=== PATIENT | female | born 1975 | race Caucasian/White ===

== ENCOUNTER 2023-09-21 13:24 | Outpatient (CLI) | payer BC, SELFPAY ==
--- OUTSIDE RECORDS SUMMARY | 2023-09-21 13:27 | XMS_ITS | Referral Summary ---
Author Name Unknown Organization [facility] Address [address] [place] [address] Care Team Providers Care Stock Clerk Self Service Store Name Role Phone Clinic, [facility] [place] [facility] Pro vider Allergies Active Allergy Reactions Criticality Noted Date Comments Amoxicillin Itching 02/17/2020 Social History Tobacco Use Types Packs/Day Years Used Date Smoking Tobacco: Never Assessed Adolescent Education Answer Date Record ed Getting School Help Needed Not on file 01/31 Sex and Gender Information Value Date Recorded Sex Assigned at Not on file Gender Identity Not on file Sexual Orientation Not on file Last Filed Vital Signs Vital Sign Reading Time Taken Comments Blood Pressure 115/84 02/17/2020 8:00 PM CDT Pulse 79 02/17/2020 8:00 PM CDT Temperature 36.1 ??C (97 ??F) 02/17/2020 3:44 PM CDT Respiratory Rate 13 02/17/2020 6:00 PM CDT Oxygen Saturation 98% 02/17/2020 8:50 PM CDT Inhaled Oxygen Concentration - - Weight 78 kg (171 lb 15.3 oz) 02/17/2020 3:44 PM CDT Height - - Body Mass Index - - Plan of Treatment Not on file Care Teams Stock Clerk Self Service Store Relationship Specialty Start Date End Date Clinic, [facility] [address] [place] [address] PCP - General 02/17/20
--- OUTSIDE RECORDS SUMMARY | 2023-09-21 13:27 | XMS_ITS | Clinical Summary ---
Author Name Unknown Organization [facility] Address [address] [place] [address] Care Team Providers Care Appraiser Oil And Water Name Role Phone Mariela Da Silva PA-C Primary Care Provider + [phone] Source Comments You are receiving this document as you are listed as the primary care provider,follow-up provider, or the patient has been referred to you for consultation.This is in compliance with the Medicare and[facility] E[facility] Incentive Program,which states Providers who transition their patient to another setting of careor provider of care or refers their patient to another provider of care shouldprovide summary care record for each transition of care or referral. Formerly [facility] Allergies Active Allergy Reactions Criticality Noted Date Comments Amoxicillin 01/20/2020 Medications No known medications Active Problems No known active problems Immunizations Name Administration Dates Next Due Influenza, Unspecified Formulation 04/22/2011, Tdap 02/15/2014 Family History Medical History Relation Name Comments Diabetes, Type II Father Hyperlipidemia Father Hypertension Father No Known Problems Mother No Known Problems Brother No Known Problems Daughter 1 Guy No Known Problems Daughter 2 Baron Diabetes, Type II Maternal Grandfather in car accident Maternal Grandfather Hypertension Maternal Grandfather Obesity Maternal Grandfather Emphysema Maternal Grandmother from influenza Paternal Grandmother No Known Problems Son Mario Relation Name Status Comments Father Alive Mother Alive Brother Alive Daughter 1 Guy Alive Daughter 2 Edgar Alive Maternal Grandfather Maternal Grandmother Paternal Grandfather Unknown Alive Paternal Grandmother Son Mario Alive Social History Tobacco Use Types Packs/Day Years Used Date Smoking Tobacco: Never Smokeless Tobacco: Never Alcohol Use Standard Drinks/Week Comments Yes 0 (1 standard drink = 0.6 oz pur e alcohol) PHQ-2 Answer Date Recorded PHQ-2 Score 0 01/20/2020 Sex and Gender Information Value Date Recorded Sex Assigned at Not on file Gender Identity Not on file Sexual Orientation Not on file Last Filed Vital Signs Vital Sign Reading Time Taken Comments Blood Pressure 128/70 02/17/2020 2:36 PM CDT Pulse 67 02/17/2020 2:36 PM CDT Temperature 36.4 ??C (97.6 ??F) 02/17/2020 2:36 PM CD T Respiratory Rate 20 02/17/2020 2:36 PM CDT Oxygen Saturation 99% 02/17/2020 2:36 PM CDT Inhaled Oxygen Concentration - - Weight 75.7 kg (166 lb 14.4 oz) 020 10:38 AM CDT Height 162.6 cm (5' 4) 01/20/2020 10:3 8 AM CDT Body Mass Index 28.65 01/20/2020 10:38 AM CDT Plan of Treatment Health Maintenance Due Date Last Done Comments Colon Cancer Screening Plan Due 1974 Hep C Screening (Preventive Services) 1974 HepB (1) 1993 Adult Preventive Visit 01/19/2021 01/20/2020 COVID-19 Vaccine (1 - 2022-2 4 season) 2023 Influenza (Season Ended) 2024 011, 03/08/2010 DTaP/Tdap/Td (2 - Tdap) 02/16/2024 02/15/2014 Zoster/Shingles (1 of 2) 2024 Cervical Cancer Screening 01/19/2025 01/20/2020 Cholesterol 01/19/2025 01/20/2020 HIV Screening (Preventive Services) Completed 01/20/2020 HepA Aged Out No longer eligi ble based on patient's age to complete this topic Hib Aged Out No longer eligi ble based on patient's age to complete this topic IPV (Polio) Aged Out No longer eligi ble based on patient's age to complete this topic MCV4 Aged Out No longer eligi ble based on patient's age to complete this topic Pneumococcal Aged Out No longer eligi ble based on patient's age to complete this topic Procedures Procedure Name Priority Date/Time Associated Diagnosis Comments HIV /2 AG/AB 4TH GEN Routine 01/20/2020 11:37 AM CDT Screening for HIV (human immunodeficiency virus) LIPID PANEL & DIRECT LDL (IF NEEDED) Routine 01/20/2020 11:36 AM CDT Encounter for screening for lipoid disorders PAP TEST Routine 01/20/2020 11:23 AM CDT Pap smear for cervical cancer screening from Last 3 Months or Most Recently Relevant to Health Maintenance Results * HIV 1/2 Ag/Ab 4th Generation (01/20/2020 11:37 AM CDT) HIV 1/2 Antigen/Antib rosemarie (4th generation) Negative (Non Reactive) Negative (Non Reactive) 01/20/2020 3:55 PM CDT [facility] Comment:HIV-1 p24 Antigen an d HIV-1/HIV-2 Antibody not detected Blood Venipuncture / Unknown 01/20/2020 11:37 AM CDT 01/20/2020 11:37 AM CDT Mariela Da Silva PA-C LAB_1 [facility] [address] * Lipid Panel and Direct LDL(If Needed) (01/20/2020 11:36 AM CDT) Cholesterol 184 0 - 199 mg/dL 01/20/2020 3:21 PM CDT [facility] Triglyceride 105 <=149 mg/dL 01/20/2020 3:21 PM CDT [facility] HDL Cholesterol 45 >=40 mg/dL 0 3:21 PM CDT [facility] LDL, Calculated 118 <130 mg/dL 0 3:21 PM CDT [facility] Non HDL Chol, Calculated 139 mg/dL 01/20/2020 3:21 PM CDT [facility] Cholesterol/HDL Ratio 4.1 01/20/2020 3:21 PM CDT [facility] Hours Fasting 14 01/20/2020 3:21 PM CDT [facility] Blood Venipuncture / Unknown 01/20/2020 11:36 AM CDT 01/20/2020 11:37 AM CDT Mariela Da Silva PA-C LAB_1 [facility] [address] [place] [address], [facility] [phone] [facility] [address] [place] [address], [facility] [phone] * PAP Test (01/20/2020 11:23 AM CDT) Case Report Pap ? Case: [id number] ? Authorizing Provider: ??Mariela Da Silva PA-C ?Collected: ? 01/20/2020 1123 ? Ordering Location: ? [place] [address] Family ? Received: ?01/20/2020 1533 ? Medicine ? First Screen: ?Hanh Shane, [place] ? (ASCP) ? Specimen: ?Pap Test, Routine, Cervix/Endocervix ? 01/31/2020 8:57 AM CDT [facility] Pap Specimen Adequacy Satisfactory for evaluation, endocervical/jordan sformation zone component present. 01/31/2020 8:57 AM CDT [facility] Pap Interpretation Negative for intraepithelial lesion or malignancy (NILM). 01/31/2020 8:57 AM CDT [facility] Pap Disclaimer The Pap test is a screening test designed to aid in the detection of cervical cancer and its precursor lesions. It is not a diagnostic procedure and should not be used as the sole means of detecting cervical cancer. Both false-positive and false-negative results may occur. 01/31/2020 8:57 AM CDT [facility] Gross Description The specimen is received in SurePath fixative and properly labeled. 1 Pap-stained SurePath slide is prepared. 01/31/2020 8:57 AM CDT [facility] Embedded Images 0 8:57 AM CDT [facility] Other Specimen Type ENTIRE ENDOCERVIX / Unknown 01/20/2020 11:23 AM CDT 01/20/2020 3:33 PM CDT Comment:LMP: Patient's last menstrual period was 01/17/2020. Mariela Da Silva PA-C LAB PATHOLOGY [facility] [address] [place] [address], [facility] from Last 3 Months or Most Recently Relevant to Health Maintenance Care Teams Appraiser Oil And Water Relationship Specialty Start Date End Date Mariela Da Silva PA-C [address] [place] [address] PCP - General Physician Licensed Practical Vocational Nurse 06/25/21
--- OUTSIDE RECORDS SUMMARY | 2023-09-21 13:27 | XMS_ITS | Clinical Summary ---
Author Name Unknown Organization [facility] Address [address] [place] [address] Care Team Providers Care Lead Radiologic Technologist Name Role Phone Clinic, [facility] [facility] Pro vider Allergies Active Allergy [...] of Treatment Not on file Care Teams Lead Radiologic Technologist Relationship Specialty Start Date End Date Clinic, [facility] [address] [place] [address] PCP - General 02/17/20
[2023-09-21 23:25] LABS: Chlamydia DNA Amplified* NOT DETECTED (No Detected); GC DNA Amplified* NOT DETECTED (No Detected)
== END 2023-09-21 13:25 | disposition home or self-care (01) ==
PROVIDERS: PCP Physician Assistant Medical; Visit Provider Physician Assistant Medical
DX: Z11.3 Encounter for screening for infections with a predominantly sexual mode of transmission (principal)
CPT/HCPCS: 87491; 87591

== ENCOUNTER 2023-09-24 08:03 | Outpatient (CLI) | payer BC, SELFPAY ==
--- OUTSIDE RECORDS SUMMARY | 2023-09-25 12:43 | XMS_ITS | Clinical Summary ---
Author Name Unknown Organization [facility] Address [address] [place] [address] Care Team Providers Care Wrapper Layer And Examiner Soft Work Name Role Phone Clinic, [facility] [place] [facility] Pro vider Allergies Active Allergy [...] of Treatment Not on file Care Teams Wrapper Layer And Examiner Soft Work Relationship Specialty Start Date End Date Clinic, [facility] [address] [place] [address] PCP - General 02/17/20
--- OUTSIDE RECORDS SUMMARY | 2023-09-25 12:43 | XMS_ITS | Clinical Summary ---
Author Name Unknown Organization [facility] Address [address] [place] [address] Care Team Providers Care Urgent Care Technician Name Role Phone Mariela Da Silva PA-C Primary Care Provider + [phone] Source Comments You are receiving this document as you are listed as the primary care provider,follow-up provider, or the patient has been referred to you for consultation.This is in compliance with the Medicare and[facility] EHR Incentive Program,which states Providers who transition their patient to another setting of careor provider of care or refers their patient to another provider of care shouldprovide summary care record for each transition of care or referral. [facility] Allergies Active Allergy Reactions Criticality Noted Date [...] Alive Daughter 1 Guy Alive Daughter 2 Davidson Alive Maternal Grandfather Maternal Grandmother Paternal Grandfather [...] Negative (Non Reactive) 01/20/2020 3:55 PM CDT [facility] Comment:HIV-1 p24 Antigen an d HIV-1/HIV-2 Antibody not detected Blood Venipuncture / Unknown 01/20/2020 11:37 AM CDT 01/20/2020 11:37 AM CDT Mariela Da Silva PA-C LAB_1 [facility] [address] * Lipid Panel and Direct LDL(If Needed) (01/20/2020 11:36 AM CDT) Cholesterol 184 0 - 199 mg/dL 01/20/2020 3:21 PM CDT [facility] Triglyceride 105 <=149 mg/dL 01/20/2020 3:21 PM CDT [facility] HDL Cholesterol 45 >=40 mg/dL 0 3:21 PM CDT [facility] LDL, Calculated 118 <130 mg/dL 0 3:21 PM CDT [facility] Non HDL Chol, Calculated 139 mg/dL 01/20/2020 3:21 PM CDT [facility] Cholesterol/HDL Ratio 4.1 01/20/2020 3:21 PM CDT [facility] Hours Fasting 14 01/20/2020 3:21 PM CDT [facility] Blood Venipuncture / Unknown 01/20/2020 11:36 AM CDT 01/20/2020 11:37 AM CDT Mariela Da Silva PA-C LAB_1 [facility] [address] [place] [address], [facility] [phone] [facility] [address] [place] [address], [facility] [phone] * PAP Test (01/20/2020 11:23 AM CDT) Case Report Pap ? Case: [id number] ? Authorizing Provider: ??Mariela Da Silva PA-C ?Collected: ? 01/20/2020 1123 ? Ordering Location: ? [place] [address] Family ? Received: ?01/20/2020 1533 ? Medicine ? First Screen: ?Hanh Shane, CT ? (ASCP) ? Specimen: ?Pap Test, Routine, Cervix/Endocervix ? 01/31/2020 8:57 AM CDT [facility] Pap Specimen Adequacy Satisfactory for evaluation, endocervical/jordan sformation zone component present. 01/31/2020 8:57 AM CDT [facility] Pap Interpretation Negative for intraepithelial lesion or malignancy (NILM). 01/31/2020 8:57 AM CDT [facility] Pap Disclaimer The Pap test is a screening test designed to aid in the detection of cervical cancer and its precursor lesions. It is not a diagnostic procedure and should not be used as the sole means of detecting cervical cancer. Both false-positive and false-negative results may occur. 01/31/2020 8:57 AM CDT [facility] Gross Description The specimen is received in SurePath fixative and properly labeled. 1 Pap-stained SurePath slide is prepared. 01/31/2020 8:57 AM CDT [facility] Embedded Images 0 8:57 AM CDT [facility] Other Specimen Type ENTIRE ENDOCERVIX / Unknown 01/20/2020 11:23 AM CDT 01/20/2020 3:33 PM CDT Comment:LMP: Patient's last menstrual period was 01/17/2020. Mariela Da Silva PA-C LAB PATHOLOGY [facility] [address] [place] [address], [facility] from Last 3 Months or Most Recently Relevant to Health Maintenance Care Teams Urgent Care Technician Relationship Specialty Start Date End Date Mariela Da Silva PA-C [address] [place] [address] PCP - General Physician Podiatric Aide 06/25/21
--- OUTSIDE RECORDS SUMMARY | 2023-09-25 12:43 | XMS_ITS | Referral Summary ---
Author Name Unknown Organization [facility] Address [address] [place] [address] Care Team Providers Care Fine Arts Instructor Name Role Phone Clinic, [facility] [place] [facility] Pro vider Allergies Active Allergy [...] of Treatment Not on file Care Teams Fine Arts Instructor Relationship Specialty Start Date End Date Clinic, [facility] [address] [place] [address] PCP - General 02/17/20
== END 2023-09-24 08:04 | disposition home or self-care (01) ==
PROVIDERS: PCP Physician Assistant Medical; Referring Provider Physician Assistant Medical; Visit Provider Physician Assistant Medical
DX: N95.1 Menopausal and female climacteric states (principal); Z13.228 Encounter for screening for other metabolic disorders; Z11.3 Encounter for screening for infections with a predominantly sexual mode of transmission
CPT/HCPCS: 80053; 80061; 82670; 84403; 84443; 86703; 86803

== ENCOUNTER 2023-10-30 06:56 | Outpatient (CLI) | payer BC, SELFPAY ==
--- OUTSIDE RECORDS SUMMARY | 2023-10-30 06:59 | XMS_ITS | Clinical Summary ---
Author Organization [facility] Address [address] [place] [address] Care Team Providers Care Operations Recruiter Name Role Phone Clinic, [facility] [place] [facility] Pro vider Allergies Active Allergy [...] of Treatment Not on file Care Teams Operations Recruiter Relationship Specialty Start Date End Date Clinic, [facility] [address] [place] [address] PCP - General 02/17/20
--- OUTSIDE RECORDS SUMMARY | 2023-10-30 06:59 | XMS_ITS | Clinical Summary ---
[facility] Organization [facility] Address [address] [address] Care Team Providers Care Supervisor Production Department Name Role Phone Mariela Da Silva PA-C Primary Care Provider + [phone] Source Comments You are receiving this document as you are listed as the primary care provider,follow-up provider, or the patient has been referred to you for consultation.This is in compliance with the Medicare and[facility] EHR Incentive [facility],which states Providers who transition their patient to another setting of careor provider of care or refers their patient to another provider of care shouldprovide summary care record for each transition of care or referral. [facility] Allergies Active Allergy Reactions Criticality Noted Date [...] 1 Guy No Known Problems Daughter 2 Price Diabetes, Type II Maternal Grandfather in car accident Maternal Grandfather Hypertension Maternal Grandfather Obesity Maternal Grandfather Emphysema Maternal Grandmother from influenza Paternal Grandmother No Known Problems Son Mario Relation Name Status Comments Father Alive Mother Alive Brother Alive Daughter 1 Guy Alive Daughter 2 Baron Alive Maternal Grandfather Maternal Grandmother Paternal Grandfather [...] Name Priority Date/Time Associated Diagnosis Comments HIV 1/2 AG/AB 4TH GEN Routine 01/20/2020 11:37 AM [...] Negative (Non Reactive) 01/20/2020 3:55 PM CDT [facility] Comment:HIV-1 p24 Antigen an d HIV-1/HIV-2 Antibody not detected Blood Venipuncture / Unknown 01/20/2020 11:37 AM CDT 01/20/2020 11:37 AM CDT Mariela Da Silva PA-C LAB_1 [facility] [address] * Lipid Panel and Direct LDL(If Needed) (01/20/2020 11:36 AM CDT) Pathologist [facility] Cholesterol 184 0 - 199 mg/dL 01/20/2020 3:21 PM CDT [facility] Triglyceride 105 <=149 mg/dL 01/20/2020 3:21 PM CDT [facility] HDL Cholesterol 45 >=40 mg/dL 0 3:21 PM CDT [facility] LDL, Calculated 118 <130 mg/dL 0 3:21 PM CDT [facility] Non HDL Chol, Calculated 139 mg/dL 01/20/2020 3:21 PM CDT [facility] Cholesterol/HDL Ratio 4.1 01/20/2020 3:21 PM T [facility] Hours Fasting 14 01/20/2020 3:21 PM CDT [facility] Blood Venipuncture / Unknown 01/20/2020 11:36 AM CDT 01/20/2020 11:37 AM CDT Mariela Da Silva PA-C LAB_1 Performing Organization Address [facility]/State/ZIP Co de Phone Number [facility] [address] [place] [address], [facility] [phone] [facility] [address] [place] [address], [facility] [phone] * PAP Test (01/20/2020 11:23 AM CDT) Case Report Pap ? Case: [id number] ? Authorizing Provider: ??Mariela Da Silva PA-C ?Collected: ? 01/20/2020 1123 ? Ordering Location: ? [place] [address] Family ? Received: ?01/20/2020 1533 ? Medicine ? First Screen: ?Hanh Shane, CT ? (ASCP) ? Specimen: ?Pap Test, Routine, Cervix/Endocervix ? 01/31/2020 8:57 AM CDT [facility] Pap Specimen Adequacy Satisfactory for evaluation, endocervical/jordan sformation zone component present. 01/31/2020 8:57 AM CDT [facility] Pap Interpretation Negative for intraepithelial lesion or malignancy (NILM). 01/31/2020 8:57 AM CDT [facility] Pap Disclaimer The Pap test is a screening test designed to aid in the detection of cervical cancer and its precursor lesions. It is not a diagnostic procedure and should not be used as the sole means of detecting cervical cancer. Both false-positive and false-negative results may occur. 01/31/2020 8:57 AM CDT [facility] Gross Description The specimen is received in SurePath fixative and properly labeled. 1 Pap-stained SurePath slide is prepared. 01/31/2020 8:57 AM CDT [facility] Embedded Images 0 8:57 AM CDT [facility] Other Specimen Type ENTIRE ENDOCERVIX / Unknown 01/20/2020 11:23 AM CDT 01/20/2020 3:33 PM CDT Comment:LMP: Patient's last menstrual period was 01/17/2020. Mariela Da Silva PA-C LAB PATHOLOGY [facility] [address] [place], [place] [address] from Last 3 Months or Most Recently Relevant to Health Maintenance Care Teams Supervisor Production Department Relationship Specialty Start Date End Date Mariela Da Silva PAHinaC [address] [place] [address] PCP - General Physician Concrete Mixer Operator Helper 06/25/21
--- OUTSIDE RECORDS SUMMARY | 2023-10-30 06:59 | XMS_ITS | Referral Summary ---
Author Organization [facility] Address [address] [place] [address] Care Team Providers Care Health Data Administrator Name Role Phone Clinic, [facility] Pro vider Allergies Active Allergy [...] of Treatment Not on file Care Teams Health Data Administrator Relationship Specialty Start Date End Date Clinic, [facility] [address] [place] [address] PCP - General 02/17/20
--- NOTE | 2023-10-30 08:26 | W.ANESCHARGE ---
Anesthesia Charges Start Date/Time Anesthesia Start Date: 10/30/23 Anesthesia Start Time: 07:55 Stop Date/Time Anesthesia Stop Date: 10/30/23 Anesthesia Stop Time: 08:20
== END 2023-10-30 06:57 | disposition home or self-care (01) ==
LOC: OP CLINIC 06:57
PROVIDERS: PCP Physician Assistant Medical; Visit Provider Internal Medicine
DX: Z12.11 Encounter for screening for malignant neoplasm of colon (principal)
CPT/HCPCS: 00812; 45378; J2704

== ENCOUNTER 2023-12-15 12:49 | Outpatient (CLI) | payer BC, SELFPAY ==
--- OUTSIDE RECORDS SUMMARY | 2023-12-15 12:52 | XMS_ITS | Clinical Summary ---
Author Organization [facility] Address [address] [place] [address] Care Team Providers Care Day Care Home Mother Name Role Phone Clinic, [facility] [place] [facility] Pro vider Allergies Active Allergy [...] of Treatment Not on file Care Teams Day Care Home Mother Relationship Specialty Start Date End Date Clinic, [facility] [address] [place] [address] PCP - General 02/17/20
--- OUTSIDE RECORDS SUMMARY | 2023-12-15 12:52 | XMS_ITS | Clinical Summary ---
[facility] Address [address], [place] [address] Care Team Providers Care Dray Driver Name Role Phone Mariela Da Silva PA-C Primary Care Provider + [phone] Source Comments You are receiving this document as you are listed as the primary care provider,follow-up provider, or the patient has been referred to you for consultation.This is in compliance with the Medicare and[facility] EHR Incentive Program,which states Providers who transition their patient to another setting of careor provider of care or refers their patient to another provider of care shouldprovide summary care record for each transition of care or referral. Field[employer]ware Allergies Active Allergy Reactions Criticality Noted Date [...] 1 Guy No Known Problems Daughter 2 [place] Diabetes, Type II Maternal Grandfather in car accident Maternal Grandfather Hypertension Maternal Grandfather Obesity Maternal Grandfather Emphysema Maternal Grandmother from influenza Paternal Grandmother No Known Problems Son Mario Relation Name Status Comments Father Alive Mother Alive Brother Alive Daughter 1 Guy Alive Daughter 2 [place] Alive Maternal Grandfather Maternal Grandmother Paternal Grandfather [...] (1) 1994 Adult Preventive Visit 01/19/2021 01/20/2020 Mammogram 02/14/2021 02/15/2020 COVID-19 Vaccine (1 - 2022-2 4 season) 2023 Influenza (#1) 2024 04/22/2011, 03/08/2010 DTaP/Tdap/Td (2 - Tdap) 02/16/2024 02/15/2014 [...] Procedure Name Priority Date/Time Associated Diagnosis Comments MM MAMMOGRAM SCREENING BILAT W 3D REMY W CAD Routine 02/15/2020 1:36 PM CDT Screening for breast cancer HIV 1/2 AG/AB 4TH GEN Routine 01/20/2020 11:37 AM CDT Screening for HIV (human immunodeficiency virus) LIPID PANEL & DIRECT LDL (IF NEEDED) Routine 01/20/2020 11:36 AM CDT Encounter for screening for lipoid disorders PAP TEST Routine 01/20/2020 11:23 AM CDT Pap smear for cervical cancer screening from Last 3 Months or Most Recently Relevant to Health Maintenance Results * MM Mammogram Screening Bilat W 3D Remy W CAD (02/15/2020 1:36 PM CDT) Anatomical Region Laterality Modality Breast Bilateral Mammography Impressions 02/15/2020 2:49 PM CDT : ACR BI-RADS Category 1: Negative RECOMMENDATION: Follow Up Imaging in 12 months The results and recommendations of this examination will be communicated to the patient. Narrative 02/15/2020 2:49 PM CDT MM MAMMOGRAM SCREENING BILAT W 3D REMY W CAD performed on 02/15/20 Compared to: 10/13/2017 Foreign Image(S) Mammogram, 08/22/2016 Foreign Image(S) Mammogram, and 08/03/2015 Foreign Image(S) Mammogram FINDINGS: Bilateral screening mammogram was performed with the assistance of Computer-Aided Detection and breast tomosynthesis. The breasts are heterogeneously dense, which may obscure small masses. There is no radiographic evidence of malignancy. ?? Mariela Da Silva PA-C [facility] * HIV 1/2 Ag/Ab 4th Generation (01/20/2020 11:37 AM CDT) HIV 1/2 Antigen/Antib rosemarie (4th generation) Negative (Non Reactive) Negative (Non Reactive) 01/20/2020 3:55 PM CDT [facility] Comment:HIV-1 p24 Antigen an d HIV-1/HIV-2 Antibody not detected Blood Venipuncture / Unknown 01/20/2020 11:37 AM CDT 01/20/2020 11:37 AM CDT Mariela Da Silva PA-C LAB_1 Performing Organization Address City/[facility]/ZIP Co de Phone Number [facility] [address] * Lipid Panel and Direct LDL(If Needed) (01/20/2020 11:36 AM CDT) [facility] Cholesterol 184 0 - 199 mg/dL 01/20/2020 3:21 PM CDT [facility] Triglyceride 105 <=149 mg/dL 01/20/2020 3:21 PM T [facility] HDL Cholesterol 45 >=40 mg/dL 0 3:21 PM T [facility] LDL, Calculated 118 <130 mg/dL 0 3:21 PM T [facility] Non HDL Chol, Calculated 139 mg/dL 01/20/2020 3:21 PM T [facility] Cholesterol/HDL Ratio 4.1 01/20/2020 3:21 PM [facility] Hours Fasting 14 01/20/2020 3:21 PM T [facility] Blood Venipuncture / Unknown 01/20/2020 11:36 AM CDT 01/20/2020 11:37 AM CDT Mariela Da Silva PA-C LAB_1 Performing Organization Address [facility]/ZIP Co de Phone Number [facility] [address] [place] [address], [facility] [phone] [facility] [address] [place] [address], [facility] [phone] * PAP Test (01/20/2020 11:23 AM CDT) Pathologist [facility] Case Report Pap ? Case: [id number] ? Authorizing Provider: ??Mariela Da Silva PA-C ?Collected: ? 01/20/2020 1123 ? Ordering Location: ? [place] [id number] Family ? Received: ?01/20/2020 1533 ? Medicine ? First Screen: ?Acosta, Hanh L, CT ? (ASCP) ? Specimen: ?Pap Test, Routine, Cervix/Endocervix ? 01/31/2020 8:57 AM CDT [facility] Pap Specimen Adequacy Satisfactory for evaluation, endocervical/jordan sformation zone component present. 01/31/2020 8:57 AM CDT [facility] Pap Interpretation Negative for intraepithelial lesion or malignancy (NILM). 01/31/2020 8:57 AM CDT [facility] Pap Disclaimer The Pap test is a screening test designed to aid in the detection of cervical cancer and its precursor lesions. It is not a diagnostic procedure and should not be used as the sole means of detecting cervical cancer. Both false-positive and false-negative results may occur. 01/31/2020 8:57 AM CDT [facility] Gross Description The specimen is received in SurePath fixative and properly labeled. 1 Pap-stained SurePath slide is prepared. 01/31/2020 8:57 AM CDT [facility] Embedded Images 0 8:57 AM CDT [facility] Other Specimen Type ENTIRE ENDOCERVIX / Unknown 01/20/2020 11:23 AM CDT 01/20/2020 3:33 PM CDT Comment:LMP: Patient's last menstrual period was 01/17/2020. Mariela Da Silva PA-C LAB PATHOLOGY [facility] [address] [place] [address], [facility] from Last 3 Months or Most Recently Relevant to Health Maintenance Care Teams Dray Driver Relationship Specialty Start Date End Date Mariela Da Silva PA-C [address] [place] [address] PCP - General Physician Foreman Or Supervisor And Operator 06/25/21
--- OUTSIDE RECORDS SUMMARY | 2023-12-15 12:52 | XMS_ITS | Referral Summary ---
Author Organization [place] [facility] Address [address] [place] [address] Care Team Providers Care Agronomy Professor Name Role Phone Clinic, [facility] Pro vider Allergies Active Allergy [...] of Treatment Not on file Care Teams Agronomy Professor Relationship Specialty Start Date End Date Clinic, [facility] [address] [place] [address] PCP - General 02/17/20
--- NOTE | 2023-12-15 13:00 | CRLHL7_ITS ---
For Patients: As a result of the Century Cures Act, medical imaging exams and procedure reports are released immediately into your electronic medical record. You may view this report before your referring provider. If you have questions, please contact your health care provider. INDICATION: Irregular menstruation COMPARISON: none TECHNIQUE: 2D elias scale and color Doppler images were acquired of the pelvis using a transabdominal and transvaginal approach. FINDINGS: Sonographic images demonstrate a normal size and smooth outer contour of the uterus. Uterus measures 8.9 cm in length by 3.8 cm in AP diameter by 4.5 cm in transverse dimension. Slightly hyperechoic fibroid is present within the posterior uterine fundus, intramural, measuring 2.2 x 1.5 x 2.0 cm. The endometrial lining measures 5 mm in composite thickness. The right ovary measures 2.0 x 1.6 x 2.3 cm in size and the left ovary measures 2.4 x 1.3 x 1.5 cm. The ovaries demonstrate normal arterial and venous blood flow on color Doppler analysis. There are no suspicious fluid collections within the cul-de-sac. IMPRESSION: Endometrial thickness 5 millimeters. Intramural fibroid measuring 2.2 cm. Dictated by Zhou Lincoln MD @ 12/16/2023 6:40:23 AM (Electronically Signed)
--- NOTE | 2023-12-15 14:40 | CRLHL7_ITS ---
For Patients: As a result of the Century Cures Act, medical imaging exams and procedure reports are released immediately into your electronic medical record. You may view this report before your referring provider. If you have questions, please contact your health care provider. BILATERAL SCREENING MAMMOGRAM WITH COMPUTER-AIDED DETECTION AND TOMOSYNTHESIS TECHNIQUE: CC and MLO views were obtained. These mammographic images have been obtained using full-field digital technique. These mammographic images were interpreted with the benefit of computer-aided detection. Breast Tomosynthesis was used in this interpretation. COMPARISON FILM: 02/15/20. FINDINGS: The breasts are heterogeneously dense, which may obscure small masses. IMPRESSION: There is no radiographic evidence for malignancy. ASSESSMENT: BI-RADS Category 1: Negative RECOMMENDATION: Routine screening mammogram in 1 year. A lay language report of this examination will be provided to the patient. Zhou Lincoln M.D. Diagnostic Radiologist [email or web address] SP/Dictated by: Zhou Lincoln MD @ 12/21/2023 10:12:00 AM (Electronically Signed)
== END 2023-12-15 12:50 | disposition home or self-care (01) ==
LOC: US 12:50
PROVIDERS: PCP Physician Assistant Medical; Visit Provider Physician Assistant Medical
DX: N92.6 Irregular menstruation, unspecified (principal); R93.89 Abnormal findings on diagnostic imaging of other specified body structures; Z12.31 Encounter for screening mammogram for malignant neoplasm of breast; R92.333 Mammographic heterogeneous density, bilateral breasts
CPT/HCPCS: 76830; 76856; 77063; 77067

== ENCOUNTER 2024-12-15 08:10 | Outpatient (CLI) | payer BC, SELFPAY | END 2024-12-15 08:11 | disposition home or self-care (01) | PROVIDERS: PCP Physician Assistant Medical; Visit Provider Physician Assistant Medical | DX: Z00.00 Encounter for general adult medical examination without abnormal findings (principal); N92.6 Irregular menstruation, unspecified; N95.1 Menopausal and female climacteric states; Z79.899 Other long term (current) drug therapy; Z13.6 Encounter for screening for cardiovascular disorders | CPT/HCPCS: 80053; 80061; 82306; 82607; 82728; 84443 ==